=== PATIENT | male | born 1950 ===

== ENCOUNTER 2021-10-06 19:00 | Outpatient (CLI) | payer MEDICARE, OTHER | END 2021-10-06 19:01 | disposition home or self-care (01) | LOC: SLEEPLAB 19:00 | PROVIDERS: ATTEND Nurse Practitioner Family | DX: G47.33 Obstructive sleep apnea (adult) (pediatric) (principal); R53.83 Other fatigue; K21.9 Gastro-esophageal reflux disease without esophagitis; F41.9 Anxiety disorder, unspecified; F32.9 Major depressive disorder, single episode, unspecified; G47.00 Insomnia, unspecified; I10 Essential (primary) hypertension; R06.83 Snoring; R73.03 Prediabetes; F98.8 Other specified behavioral and emotional disorders with onset usually occurring in childhood and adolescence; N52.9 Male erectile dysfunction, unspecified; M19.90 Unspecified osteoarthritis, unspecified site | CPT/HCPCS: 95810 ==

== ENCOUNTER 2023-09-14 03:26 | Inpatient (IN) | payer MEDICARE, OTHER ==
[2023-09-14] MEDS ORDERED: Bacitracin 1 PK ONE (03:51)
[2023-09-14] MEDS ORDERED: fentaNYL 50 mcg/mL 1 mL Vial ONE (03:52)
[2023-09-14] MEDS ORDERED: Lidocaine 1% w/Epinephrine 1:100K 20 ML VIAL ONE (03:52)
[2023-09-14] MEDS ORDERED: Boostrix 0.5 ML (Tdap) VIAL (>/=7 yrs of age) ONE (03:52)
[2023-09-14 04:00] LABS: #Monocytes 1.2 thou/uL (0.11-0.59); #Neutrophils 13.5 thou/uL (1.40-6.50); %Basophils 0.2 % (0.0-1.0); %Eosinophils 0.2 % (0.0-10.0); %Lymphocytes 10.2 % (21.0-51.0); %Monocytes 7.2 % (0.0-10.0); %Neutrophils 81.4 % (42.0-75.0); Hematocrit 44.2 % (42.0-52.0); Hemoglobin 14.1 g/dL (14.0-18.0); Mean Corpuscular HGB CONC 31.9 g/dL (32.0-36.0); Mean Platelet Volume 10.9 fL (7.4-10.4); Platelet Count 202 10x3/uL (130-400); RBC Distribution Width 11.9 % (11.5-14.5); White Blood Cell (WBC) Count 16.6 10x3/uL (4.8-10.8)
[2023-09-14 04:21] LABS: ALT (SGPT) 22 U/L (8-55); AST (SGOT) 18 U/L (5-34); Albumin 3.6 g/dL (3.4-4.8); Alkaline Phosphatase 50 U/L (40-110); Anion Gap 15 mmol/L (10-20); BUN (Urea Nitrogen) 29 mg/dL (8.4-25.7); Bilirubin, Total 0.7 mg/dL (0.2-1.2); Calc. Creatinine Clearance 0 mL/min (70-130); Calcium 8.2 mg/dL (7.8-10.44); Carbon Dioxide 23 mmol/L (23-31); Chloride 102 mmol/L (98-107); Estimated GFR 47; Globulin 2.2 g/dL (2.4-3.5); Glucose 127 mg/dL (83-110); Potassium 5.4 mmol/L (3.5-5.1); Protein, Total 5.8 g/dL (5.8-8.1); Sodium 135 mmol/L (136-145)
[2023-09-14] MEDS ORDERED: Ketorolac Tromethamine 30 MG (1 mL) VIAL ONE (04:54)
[2023-09-14 05:41] LABS: Troponin I Less than 0.010 ng/mL (< 0.028)
[2023-09-14] MEDS ORDERED: Morphine 4 MG/ML VIAL ONE (05:48)
[2023-09-14] MEDS ORDERED: Ondansetron ODT 4 MG TAB SL PRN (06:15)
[2023-09-14] MEDS ORDERED: Ondansetron PF 4 MG/2 ML Vial IVP PRN (06:15)
[2023-09-14] MEDS ORDERED: Acetaminophen 325 MG TAB PO PRN (06:15)
[2023-09-14] MEDS ORDERED: Sodium Chloride 0.9% 1,000 ML IV SCH (08:30)
[2023-09-14] MEDS ORDERED: Iopamidol 370 76% 100 ML VIAL ONE (09:59)
[2023-09-14] MEDS ORDERED: Acetaminophen 500 MG TAB PO SCH (10:00)
[2023-09-14] MEDS: Acetaminophen/Codeine 30-300mg Tablet PO SCH ×3 (12:06→23:02)
[2023-09-14] MEDS: Sodium Chloride 0.9% 1,000 ML IV SCH ×3 (12:07→23:01)
[2023-09-14] MEDS: Cyclobenzaprine 10 MG TAB PO PRN (16:07)
[2023-09-14 19:06] LABS: #Monocytes 1.3 thou/uL (0.11-0.59); %Basophils 0.1 % (0.0-1.0); %Eosinophils 0.1 % (0.0-10.0); %Lymphocytes 8.7 % (21.0-51.0); %Monocytes 8.7 % (0.0-10.0); Hematocrit 36.1 % (42.0-52.0); Hemoglobin 11.7 g/dL (14.0-18.0); Mean Corpuscular HGB CONC 32.4 g/dL (32.0-36.0); Mean Corpuscular Hemoglobin 30.3 pg (27.0-31.0); Mean Corpuscular Volume 93.5 fl (78.0-98.0); Mean Platelet Volume 11.2 fL (7.4-10.4); Platelet Count 175 10x3/uL (130-400); Red Blood Cell (RBC) Count 3.86 mill/uL (4.70-6.10); White Blood Cell (WBC) Count 14.7 10x3/uL (4.8-10.8)
[2023-09-14] MEDS: lamoTRIgine 100 MG TAB PO SCH (20:41)
[2023-09-14] MEDS: Gabapentin 100 MG CAP PO SCH (20:41)
[2023-09-14] MEDS ORDERED: CeleCOXIB 100 MG CAP PO SCH (21:00)
[2023-09-15 01:11] LABS: #Monocytes 1.5 thou/uL (0.11-0.59); #Neutrophils 11.4 thou/uL (1.40-6.50); %Basophils 0.1 % (0.0-1.0); %Eosinophils 0.1 % (0.0-10.0); %Lymphocytes 9.3 % (21.0-51.0); %Monocytes 10.4 % (0.0-10.0); %Neutrophils 79.5 % (42.0-75.0); Hematocrit 30.5 % (42.0-52.0); Hemoglobin 9.6 g/dL (14.0-18.0); Mean Corpuscular HGB CONC 31.5 g/dL (32.0-36.0); Mean Corpuscular Hemoglobin 29.7 pg (27.0-31.0); Mean Corpuscular Volume 94.4 fl (78.0-98.0); Mean Platelet Volume 11.1 fL (7.4-10.4); Platelet Count 164 10x3/uL (130-400); Red Blood Cell (RBC) Count 3.23 mill/uL (4.70-6.10); White Blood Cell (WBC) Count 14.4 10x3/uL (4.8-10.8)
[2023-09-15] MEDS: Ondansetron PF 4 MG/2 ML Vial IVP PRN (03:09)
[2023-09-15 03:18] LABS: #Monocytes 1.8 thou/uL (0.11-0.59); #Neutrophils 13.2 thou/uL (1.40-6.50); %Basophils 0.2 % (0.0-1.0); %Eosinophils 0.1 % (0.0-10.0); %Lymphocytes 21.2 % (21.0-51.0); %Monocytes 9.5 % (0.0-10.0); %Neutrophils 68.5 % (42.0-75.0); Hematocrit 27.7 % (42.0-52.0); Hemoglobin 9.1 g/dL (14.0-18.0); Mean Corpuscular HGB CONC 32.9 g/dL (32.0-36.0); Mean Corpuscular Hemoglobin 30.6 pg (27.0-31.0); Mean Corpuscular Volume 93.3 fl (78.0-98.0); Platelet Count 191 10x3/uL (130-400); RBC Distribution Width 12.2 % (11.5-14.5); Red Blood Cell (RBC) Count 2.97 mill/uL (4.70-6.10); White Blood Cell (WBC) Count 19.2 10x3/uL (4.8-10.8)
[2023-09-15 03:30] LABS: Lactic Acid 3.9 mmol/L (0.5-2.2)
[2023-09-15 03:34] LABS: ALT (SGPT) 15 U/L (8-55); AST (SGOT) 11 U/L (5-34); Albumin 3.1 g/dL (3.4-4.8); Alkaline Phosphatase 36 U/L (40-110); Anion Gap 13 mmol/L (10-20); BUN (Urea Nitrogen) 50 mg/dL (8.4-25.7); Bilirubin, Total 0.3 mg/dL (0.2-1.2); Calc. Creatinine Clearance 79 mL/min (70-130); Calcium 7.6 mg/dL (7.8-10.44); Carbon Dioxide 19 mmol/L (23-31); Chloride 108 mmol/L (98-107); Estimated GFR 59; Globulin 1.6 g/dL (2.4-3.5); Glucose 174 mg/dL (83-110); INR-International Normal Ratio 1.3; Magnesium 2.1 mg/dL (1.6-2.6); PTT 27.4 sec (22.9-36.1); Phosphorus 1.8 mg/dL (2.3-4.7); Potassium 4.4 mmol/L (3.5-5.1); Protein, Total 4.7 g/dL (5.8-8.1); Prothrombin Time 16.6 sec (12.0-14.7); Sodium 136 mmol/L (136-145)
[2023-09-15 03:35] LABS: D-Dimer Test 0.44 mcg/mL (0.27-0.43)
[2023-09-15] MEDS: Sodium Chloride 0.9% 1,000 ML IV SCH (03:45)
[2023-09-15 08:13] LABS: %Basophils 0.2 % (0.0-1.0); %Lymphocytes 8.4 % (21.0-51.0); %Monocytes 7.4 % (0.0-10.0); %Neutrophils 83.5 % (42.0-75.0); Hematocrit 28.9 % (42.0-52.0); Hemoglobin 9.4 g/dL (14.0-18.0); Mean Corpuscular HGB CONC 32.5 g/dL (32.0-36.0); Mean Corpuscular Hemoglobin 30.3 pg (27.0-31.0); Mean Corpuscular Volume 93.2 fl (78.0-98.0); Mean Platelet Volume 11.6 fL (7.4-10.4); Platelet Count 163 10x3/uL (130-400); RBC Distribution Width 12.2 % (11.5-14.5); White Blood Cell (WBC) Count 13.2 10x3/uL (4.8-10.8)
[2023-09-15 08:33] LABS: INR-International Normal Ratio 1.2; PTT 26.2 sec (22.9-36.1); Prothrombin Time 15.5 sec (12.0-14.7)
[2023-09-15] MEDS: Acetaminophen/Codeine 30-300mg Tablet PO SCH ×4 (08:38→20:37)
[2023-09-15] MEDS: Venlafaxine HCl XR 75 MG CAP PO SCH ×2 (08:38→09:20)
[2023-09-15] MEDS: PHOS-NAK 1 PKT PACK PO SCH ×2 (08:38→16:44)
[2023-09-15] MEDS: Gabapentin 100 MG CAP PO SCH ×3 (08:38→20:36)
[2023-09-15] MEDS: Rosuvastatin 10 MG TAB PO SCH ×2 (08:38→09:20)
[2023-09-15] MEDS ORDERED: hydrALAZINE 20 MG/ML VIAL SLOW IVP PRN (09:13)
[2023-09-15] MEDS ORDERED: hydrALAZINE 20 MG/ML VIAL ONE (09:19)
[2023-09-15] MEDS ORDERED: BuPROPion 100 MG SR.TAB PO SCH (12:15)
[2023-09-15] MEDS ORDERED: clonazePAM 0.5 MG TAB PO SCH (12:15)
[2023-09-15] MEDS ORDERED: Pantoprazole 40 MG VIAL IVP SCH (16:15)
[2023-09-15] MEDS ORDERED: PROPOFOL 40 ML ONE (18:00)
[2023-09-15] MEDS ORDERED: Lidocaine 2% PF 5 ML VIAL ONE (18:07)
[2023-09-15] MEDS ORDERED: PHENYLEPHRINE-NS 100 MCG/ML 10 ML SYRINGE ONE (18:11)
[2023-09-15] MEDS: lamoTRIgine 100 MG TAB PO SCH (20:36)
[2023-09-15] MEDS: clonazePAM 0.5 MG TAB PO SCH (20:36)
[2023-09-15] MEDS: BuPROPion 100 MG SR.TAB PO SCH (20:37)
[2023-09-16 05:05] LABS: #Eosinphils 0.1 thou/uL (0.0-0.7); #Monocytes 1.3 thou/uL (0.11-0.59); #Neutrophils 10.2 thou/uL (1.40-6.50); %Basophils 0.1 % (0.0-1.0); %Eosinophils 0.5 % (0.0-10.0); %Lymphocytes 14.2 % (21.0-51.0); %Monocytes 9.4 % (0.0-10.0); %Neutrophils 75.3 % (42.0-75.0); Hematocrit 25.4 % (42.0-52.0); Hemoglobin 7.8 g/dL (14.0-18.0); Mean Corpuscular HGB CONC 30.7 g/dL (32.0-36.0); Mean Corpuscular Hemoglobin 29.7 pg (27.0-31.0); Mean Platelet Volume 11.6 fL (7.4-10.4); Platelet Count 157 10x3/uL (130-400); RBC Distribution Width 12.8 % (11.5-14.5); Red Blood Cell (RBC) Count 2.63 mill/uL (4.70-6.10); White Blood Cell (WBC) Count 13.5 10x3/uL (4.8-10.8)
[2023-09-16 05:23] LABS: Mean Corpuscular Volume 96.6 fl (78.0-98.0)
[2023-09-16 05:29] LABS: Anion Gap 9 mmol/L (10-20); BUN (Urea Nitrogen) 28 mg/dL (8.4-25.7); Calc. Creatinine Clearance 99 mL/min (70-130); Calcium 7.9 mg/dL (7.8-10.44); Carbon Dioxide 23 mmol/L (23-31); Chloride 108 mmol/L (98-107); Estimated GFR 78; Glucose 113 mg/dL (83-110); Potassium 4.2 mmol/L (3.5-5.1); Sodium 136 mmol/L (136-145)
[2023-09-16] MEDS: Acetaminophen/Codeine 30-300mg Tablet PO SCH ×4 (05:38→23:28)
[2023-09-16] MEDS: Rosuvastatin 10 MG TAB PO SCH (09:38)
[2023-09-16] MEDS: clonazePAM 0.5 MG TAB PO SCH ×2 (09:38→21:01)
[2023-09-16] MEDS: Ascorbic Acid 500 mg Chewable Tablet PO SCH (09:38)
[2023-09-16] MEDS: Gabapentin 100 MG CAP PO SCH ×2 (09:38→21:02)
[2023-09-16] MEDS: BuPROPion 100 MG SR.TAB PO SCH ×2 (09:39→21:02)
[2023-09-16] MEDS: Venlafaxine HCl XR 75 MG CAP PO SCH (09:39)
[2023-09-16] MEDS: Pantoprazole 40 MG VIAL IVP SCH ×2 (09:39→21:02)
[2023-09-16] MEDS: Senokot S 8.6-50 MG TAB PO SCH ×2 (09:42→21:03)
[2023-09-16] MEDS: Polyethylene Glycol 3350 17 GM Packet PO SCH (09:42)
[2023-09-16 10:32] LABS: Lactic Acid 2.8 mmol/L (0.5-2.2)
[2023-09-16 11:26] VITALS: BP 159/80
[2023-09-16] MEDS ORDERED: Ferrous Sulfate 325 MG TAB PO SCH (17:00)
[2023-09-16] MEDS ORDERED: GoLYTELY 4,000 ml Bottle PO SCH (17:00)
[2023-09-16] MEDS: lamoTRIgine 100 MG TAB PO SCH (21:02)
[2023-09-17] MEDS: Ondansetron PF 4 MG/2 ML Vial IVP PRN (03:16)
[2023-09-17] MEDS: Cyclobenzaprine 10 MG TAB PO PRN (03:22)
[2023-09-17 05:27] LABS: #Eosinphils 0.1 thou/uL (0.0-0.7); #Monocytes 0.9 thou/uL (0.11-0.59); #Neutrophils 9.6 thou/uL (1.40-6.50); %Basophils 0.2 % (0.0-1.0); %Eosinophils 0.8 % (0.0-10.0); %Lymphocytes 11.3 % (21.0-51.0); %Monocytes 7.7 % (0.0-10.0); %Neutrophils 79.5 % (42.0-75.0); Hematocrit 21.9 % (42.0-52.0); Hemoglobin 7.1 g/dL (14.0-18.0); Mean Corpuscular HGB CONC 32.4 g/dL (32.0-36.0); Mean Corpuscular Hemoglobin 30.1 pg (27.0-31.0); Mean Corpuscular Volume 92.8 fl (78.0-98.0); Mean Platelet Volume 10.8 fL (7.4-10.4); Platelet Count 153 10x3/uL (130-400); RBC Distribution Width 13.6 % (11.5-14.5); Red Blood Cell (RBC) Count 2.36 mill/uL (4.70-6.10); White Blood Cell (WBC) Count 12.1 10x3/uL (4.8-10.8)
[2023-09-17 05:59] LABS: Anion Gap 8 mmol/L (10-20); BUN (Urea Nitrogen) 22 mg/dL (8.4-25.7); Calc. Creatinine Clearance 119 mL/min (70-130); Calcium 7.8 mg/dL (7.8-10.44); Carbon Dioxide 32 mmol/L (23-31); Chloride 102 mmol/L (98-107); Estimated GFR 91; Glucose 107 mg/dL (83-110); Potassium 3.7 mmol/L (3.5-5.1); Sodium 138 mmol/L (136-145)
[2023-09-17] MEDS: Acetaminophen/Codeine 30-300mg Tablet PO SCH ×4 (07:15→23:30)
[2023-09-17] MEDS ORDERED: Morphine 2 MG/ML VIAL SLOW IVP PRN (08:07)
[2023-09-17] MEDS ORDERED: Lidocaine 2% PF 5 ML VIAL ONE (08:49)
[2023-09-17] MEDS ORDERED: PROPOFOL 0 ML ONE (08:49)
[2023-09-17] MEDS ORDERED: Bisacodyl 10 MG SUPP PR SCH (09:00)
[2023-09-17] MEDS ORDERED: Metoclopramide HCl 10 MG (2 mL) VIAL IVP SCH (09:00)
[2023-09-17] MEDS: Polyethylene Glycol 3350 17 GM Packet PO SCH (10:16)
[2023-09-17] MEDS: Gabapentin 300 MG CAP PO SCH ×3 (10:20→21:36)
[2023-09-17] MEDS: Venlafaxine HCl XR 75 MG CAP PO SCH (10:20)
[2023-09-17] MEDS: Ascorbic Acid 500 mg Chewable Tablet PO SCH (10:20)
[2023-09-17] MEDS: Rosuvastatin 10 MG TAB PO SCH (10:21)
[2023-09-17] MEDS: Senokot S 8.6-50 MG TAB PO SCH ×2 (10:21→21:37)
[2023-09-17] MEDS: clonazePAM 0.5 MG TAB PO SCH ×2 (10:21→21:38)
[2023-09-17] MEDS: Pantoprazole 40 MG VIAL IVP SCH ×2 (10:23→21:38)
[2023-09-17] MEDS: BuPROPion 100 MG SR.TAB PO SCH ×2 (10:38→21:36)
[2023-09-17 16:51] LABS: #Eosinphils 0.1 thou/uL (0.0-0.7); #Monocytes 0.8 thou/uL (0.11-0.59); #Neutrophils 8.5 thou/uL (1.40-6.50); %Basophils 0.4 % (0.0-1.0); %Lymphocytes 11.9 % (21.0-51.0); %Monocytes 7.7 % (0.0-10.0); %Neutrophils 78.4 % (42.0-75.0); Hematocrit 24.9 % (42.0-52.0); Hemoglobin 8.2 g/dL (14.0-18.0); Mean Corpuscular HGB CONC 32.9 g/dL (32.0-36.0); Mean Corpuscular Hemoglobin 30.7 pg (27.0-31.0); Mean Corpuscular Volume 93.3 fl (78.0-98.0); Mean Platelet Volume 10.5 fL (7.4-10.4); Platelet Count 160 10x3/uL (130-400); RBC Distribution Width 14.1 % (11.5-14.5); Red Blood Cell (RBC) Count 2.67 mill/uL (4.70-6.10); White Blood Cell (WBC) Count 10.8 10x3/uL (4.8-10.8)
[2023-09-17] MEDS: lamoTRIgine 100 MG TAB PO SCH (21:37)
[2023-09-18] MEDS: Acetaminophen/Codeine 30-300mg Tablet PO SCH ×3 (06:54→19:02)
[2023-09-18] MEDS ORDERED: GoLYTELY 4,000 ml Bottle PO SCH (07:00)
[2023-09-18] MEDS ORDERED: Senokot 8.6 MG TAB PO SCH (07:00)
[2023-09-18] MEDS: Ondansetron PF 4 MG/2 ML Vial IVP PRN (07:16)
[2023-09-18 07:22] LABS: #Eosinphils 0.1 thou/uL (0.0-0.7); #Monocytes 0.9 thou/uL (0.11-0.59); %Basophils 0.4 % (0.0-1.0); %Eosinophils 0.9 % (0.0-10.0); %Lymphocytes 9.8 % (21.0-51.0); %Monocytes 8.6 % (0.0-10.0); %Neutrophils 79.8 % (42.0-75.0); Hematocrit 26.2 % (42.0-52.0); Hemoglobin 8.3 g/dL (14.0-18.0); Mean Corpuscular HGB CONC 31.7 g/dL (32.0-36.0); Mean Corpuscular Hemoglobin 29.9 pg (27.0-31.0); Mean Corpuscular Volume 94.2 fl (78.0-98.0); Mean Platelet Volume 10.6 fL (7.4-10.4); Platelet Count 174 10x3/uL (130-400); RBC Distribution Width 14.3 % (11.5-14.5); Red Blood Cell (RBC) Count 2.78 mill/uL (4.70-6.10)
[2023-09-18 07:40] LABS: INR-International Normal Ratio 1.2; PTT 27.7 sec (22.9-36.1); Prothrombin Time 14.8 sec (12.0-14.7)
[2023-09-18] MEDS: Ascorbic Acid 500 mg Chewable Tablet PO SCH (07:40)
[2023-09-18] MEDS: Polyethylene Glycol 3350 17 GM Packet PO SCH (07:41)
[2023-09-18 07:49] LABS: Anion Gap 10 mmol/L (10-20); BUN (Urea Nitrogen) 16 mg/dL (8.4-25.7); Calc. Creatinine Clearance 109 mL/min (70-130); Calcium 7.9 mg/dL (7.8-10.44); Carbon Dioxide 31 mmol/L (23-31); Chloride 100 mmol/L (98-107); Estimated GFR 85; Glucose 100 mg/dL (83-110); Potassium 3.5 mmol/L (3.5-5.1); Sodium 137 mmol/L (136-145)
[2023-09-18] MEDS: BuPROPion 100 MG SR.TAB PO SCH ×2 (08:38→21:44)
[2023-09-18] MEDS: Venlafaxine HCl XR 75 MG CAP PO SCH (08:38)
[2023-09-18] MEDS: clonazePAM 0.5 MG TAB PO SCH ×2 (08:38→21:45)
[2023-09-18] MEDS: Gabapentin 300 MG CAP PO SCH ×3 (08:38→21:45)
[2023-09-18] MEDS: Pantoprazole 40 MG VIAL IVP SCH ×2 (08:38→21:46)
[2023-09-18] MEDS: Rosuvastatin 10 MG TAB PO SCH (08:39)
[2023-09-18] MEDS: Senokot S 8.6-50 MG TAB PO SCH ×2 (08:39→21:45)
[2023-09-18] MEDS: lamoTRIgine 100 MG TAB PO SCH (21:45)
[2023-09-19] MEDS: Acetaminophen/Codeine 30-300mg Tablet PO SCH ×4 (00:28→19:01)
[2023-09-19 04:04] LABS: #Eosinphils 0.1 thou/uL (0.0-0.7); #Monocytes 0.8 thou/uL (0.11-0.59); #Neutrophils 6.2 thou/uL (1.40-6.50); %Basophils 0.4 % (0.0-1.0); %Eosinophils 1.2 % (0.0-10.0); %Lymphocytes 15.4 % (21.0-51.0); %Monocytes 9.5 % (0.0-10.0); Hematocrit 25.8 % (42.0-52.0); Hemoglobin 8.5 g/dL (14.0-18.0); Mean Corpuscular HGB CONC 32.9 g/dL (32.0-36.0); Mean Corpuscular Hemoglobin 29.8 pg (27.0-31.0); Mean Platelet Volume 10.1 fL (7.4-10.4); Platelet Count 185 10x3/uL (130-400); RBC Distribution Width 13.9 % (11.5-14.5); Red Blood Cell (RBC) Count 2.85 mill/uL (4.70-6.10); White Blood Cell (WBC) Count 8.5 10x3/uL (4.8-10.8)
[2023-09-19 04:06] LABS: Mean Corpuscular Volume 90.5 fl (78.0-98.0)
[2023-09-19 04:32] LABS: Anion Gap 15 mmol/L (10-20); BUN (Urea Nitrogen) 13 mg/dL (8.4-25.7); Calc. Creatinine Clearance 114 mL/min (70-130); Calcium 7.7 mg/dL (7.8-10.44); Carbon Dioxide 26 mmol/L (23-31); Chloride 98 mmol/L (98-107); Estimated GFR 90; Glucose 94 mg/dL (83-110); Sodium 136 mmol/L (136-145)
[2023-09-19 04:37] LABS: Potassium 2.6 mmol/L (3.5-5.1)
[2023-09-19 05:03] VITALS: BMI 33.5
[2023-09-19] MEDS: Potassium Chloride 20 MEQ in Premix 1 BAG IVPB SCH ×6 (05:05→15:37)
[2023-09-19] MEDS ORDERED: Sodium Chloride 0.9% 250 ML 250 ML IVPB SCH (05:15)
[2023-09-19] MEDS: Ascorbic Acid 500 mg Chewable Tablet PO SCH (08:39)
[2023-09-19] MEDS: Gabapentin 300 MG CAP PO SCH ×3 (08:40→20:08)
[2023-09-19] MEDS: clonazePAM 0.5 MG TAB PO SCH ×2 (08:40→20:09)
[2023-09-19] MEDS: Polyethylene Glycol 3350 17 GM Packet PO SCH (08:40)
[2023-09-19] MEDS: Pantoprazole 40 MG VIAL IVP SCH ×2 (09:22→20:09)
[2023-09-19] MEDS: Senokot S 8.6-50 MG TAB PO SCH ×2 (09:26→20:09)
[2023-09-19 09:47] LABS: Potassium 2.7 mmol/L (3.5-5.1)
[2023-09-19] MEDS ORDERED: Glycopyrrolate 0.2 MG/ML 5 ML SYRINGE ONE (12:29)
[2023-09-19] MEDS ORDERED: PROPOFOL 40 ML ONE (12:29)
[2023-09-19] MEDS ORDERED: PROPOFOL 20 ML ONE (13:00)
[2023-09-19] MEDS ORDERED: Promethazine HCl 25 MG/ML VIAL IM PRN (13:04)
[2023-09-19] MEDS ORDERED: Ondansetron HCl/PF 4 MG/2 ML Vial IVP PRN (13:04)
[2023-09-19] MEDS: Rosuvastatin 10 MG TAB PO SCH (14:20)
[2023-09-19] MEDS: Venlafaxine HCl XR 75 MG CAP PO SCH (14:20)
[2023-09-19] MEDS: BuPROPion 100 MG SR.TAB PO SCH ×2 (14:20→20:15)
[2023-09-19] MEDS ORDERED: Fluticasone Propionate Nasal Spray 16 gm Bottle NASAL SCH (18:15)
[2023-09-19] MEDS: Cyclobenzaprine 10 MG TAB PO PRN (20:00)
[2023-09-19] MEDS: lamoTRIgine 100 MG TAB PO SCH (20:09)
[2023-09-19] MEDS: Acetaminophen 325 MG TAB PO SCH (23:55)
[2023-09-20 04:29] LABS: #Eosinphils 0.2 thou/uL (0.0-0.7); #Monocytes 0.7 thou/uL (0.11-0.59); #Neutrophils 4.7 thou/uL (1.40-6.50); %Basophils 0.6 % (0.0-1.0); %Eosinophils 3.1 % (0.0-10.0); %Lymphocytes 17.3 % (21.0-51.0); %Monocytes 10.5 % (0.0-10.0); %Neutrophils 67.9 % (42.0-75.0); Hematocrit 24.9 % (42.0-52.0); Hemoglobin 8.1 g/dL (14.0-18.0); Mean Corpuscular HGB CONC 32.5 g/dL (32.0-36.0); Mean Corpuscular Hemoglobin 29.9 pg (27.0-31.0); Mean Corpuscular Volume 91.9 fl (78.0-98.0); Mean Platelet Volume 10.4 fL (7.4-10.4); Platelet Count 219 10x3/uL (130-400); RBC Distribution Width 13.8 % (11.5-14.5); Red Blood Cell (RBC) Count 2.71 mill/uL (4.70-6.10); White Blood Cell (WBC) Count 6.9 10x3/uL (4.8-10.8)
[2023-09-20 04:56] LABS: Anion Gap 12 mmol/L (10-20); BUN (Urea Nitrogen) 11 mg/dL (8.4-25.7); Calc. Creatinine Clearance 103 mL/min (70-130); Calcium 7.8 mg/dL (7.8-10.44); Carbon Dioxide 24 mmol/L (23-31); Chloride 104 mmol/L (98-107); Estimated GFR 79; Glucose 88 mg/dL (83-110); Potassium 2.9 mmol/L (3.5-5.1); Sodium 137 mmol/L (136-145)
[2023-09-20] MEDS: Acetaminophen 325 MG TAB PO SCH ×2 (06:06→14:11)
[2023-09-20] MEDS ORDERED: Potassium Chloride 20 MEQ TAB PO SCH (07:45)
[2023-09-20] MEDS: Potassium Chloride 20 MEQ in Premix 1 BAG IVPB SCH ×3 (08:24→14:05)
[2023-09-20] MEDS: Venlafaxine HCl XR 75 MG CAP PO SCH (08:26)
[2023-09-20] MEDS: Ascorbic Acid 500 mg Chewable Tablet PO SCH (08:26)
[2023-09-20] MEDS: Gabapentin 300 MG CAP PO SCH ×2 (08:27→14:10)
[2023-09-20] MEDS: BuPROPion 100 MG SR.TAB PO SCH (08:27)
[2023-09-20] MEDS: clonazePAM 0.5 MG TAB PO SCH (08:27)
[2023-09-20] MEDS: Rosuvastatin 10 MG TAB PO SCH (08:28)
[2023-09-20] MEDS: Polyethylene Glycol 3350 17 GM Packet PO SCH (08:28)
[2023-09-20] MEDS: Pantoprazole 40 MG VIAL IVP SCH (08:28)
[2023-09-20] MEDS: Senokot S 8.6-50 MG TAB PO SCH (08:28)
[2023-09-20] MEDS ORDERED: Fluticasone Propionate Nasal Spray 16 gm Bottle NASAL SCH (09:00)
[2023-09-20 09:07] VITALS: TEMP 98.1
== END 2023-09-20 14:00 | disposition home or self-care (01) | DRG 378 ==
LOC: ERS 03:26 → SURG A 05:52 → IMCU/EMU 09-15 02:39 → OBSVTOIN 09-15 04:28 → SJJU 09-20 11:09
PROVIDERS: ADMIT Student in an Organized Health Care Education/Training Program; ATTEND Student in an Organized Health Care Education/Training Program
PROC: 0DB68ZX Excision of Stomach, Via Natural or Artificial Opening Endoscopic, Diagnostic (ICD-10-PCS; principal; 2023-09-15)
PROC: 3E033XZ Introduction of Vasopressor into Peripheral Vein, Percutaneous Approach (ICD-10-PCS; 2023-09-15)
PROC: 30233N1 Transfusion of Nonautologous Red Blood Cells into Peripheral Vein, Percutaneous Approach (ICD-10-PCS; 2023-09-16)
PROC: 0DJD8ZZ Inspection of Lower Intestinal Tract, Via Natural or Artificial Opening Endoscopic (ICD-10-PCS; 2023-09-19)
PROC: 0DJ08ZZ Inspection of Upper Intestinal Tract, Via Natural or Artificial Opening Endoscopic (ICD-10-PCS; 2023-09-19)
DX: K26.4 Chronic or unspecified duodenal ulcer with hemorrhage (principal); D62 Acute posthemorrhagic anemia; S22.42XA Multiple fractures of ribs, left side, initial encounter for closed fracture; E87.20 Acidosis, unspecified; N17.9 Acute kidney failure, unspecified; K56.7 Ileus, unspecified; K92.1 Melena; N18.9 Chronic kidney disease, unspecified; E86.0 Dehydration; F41.9 Anxiety disorder, unspecified; E83.39 Other disorders of phosphorus metabolism; I12.9 Hypertensive chronic kidney disease with stage 1 through stage 4 chronic kidney disease, or unspecified chronic kidney disease; Z98.890 Other specified postprocedural states
CPT/HCPCS: 12051; 36415; 36416; 36430; 70450; 71045; 71260; 72125; 74176; 80048; 80053; 82140; 82274; 83605; 83735; 83880; 84100; 84484; 85025; 85379; 85610; 85730; 86850; 86900; 86901; 88305; 88342; 90471; 90715; 93005; 94760; 96374; 96375; C9113; G0378; G0390; J0360; J1885; J2001; J2270; J2405; J2704; J2765; J3010; J3480; J7050; P9016; Q9967